=== PATIENT | female | born 1975 | race Caucasian/White ===

== ENCOUNTER 2019-06-22 06:13 | Inpatient (IN) | payer OTHER ==
[~2019-06-22] VITALS: Ht 154.9 cm; Wt 97.5 kg
[2019-06-22] MEDS ORDERED: SUCCINYLCHOLINE CHLORIDE 200 MG/10 ML VIAL IVP ONE (07:55)
[2019-06-22] MEDS ORDERED: DEXAMETHASONE 4 MG/ML VIAL ONE (07:55)
[2019-06-22] MEDS ORDERED: DESFLURANE 240 ML BTL INH ONE (07:55)
[2019-06-22] MEDS ORDERED: KETOROLAC 30 MG/ML VIAL ONE (07:55)
[2019-06-22] MEDS ORDERED: METOCLOPRAMIDE 10 MG/2 ML INJ VIAL ONE (07:55)
[2019-06-22] MEDS ORDERED: ONDANSETRON 4 MG/2 ML VIAL ONE (07:55)
[2019-06-22] MEDS ORDERED: ROCURONIUM 50 MG/5 ML VIAL IV ONE (07:55)
[2019-06-22] MEDS ORDERED: PROPOFOL 200 MG/20 ML VIAL IV ONE (07:55)
[2019-06-22] MEDS ORDERED: BUPIVACAINE-MPF/EPI 0.5% 30 ML VIAL INJ ONE (07:58)
[2019-06-22] MEDS ORDERED: fentaNYL 0.05 MG/ML VIAL ONE (08:01)
[2019-06-22] MEDS ORDERED: HYDROmorphone PFS 2 MG/ML SYR ONE (08:01)
[2019-06-22] MEDS ORDERED: MIDAZOLAM 2 MG/2 ML VIAL ONE (08:01)
[2019-06-22] MEDS ORDERED: HYDROmorphone 1 MG/ML AMP IVP PRN ×2 (08:30→10:35)
[2019-06-22] MEDS ORDERED: ONDANSETRON 4 MG/2 ML VIAL IVP PRN (08:30)
[2019-06-22] MEDS ORDERED: ONDANSETRON 4 MG/2 ML VIAL IV PRN (10:35)
[2019-06-22] MEDS ORDERED: ACETAMINOPHEN 325 MG TAB PO PRN (10:35)
[2019-06-22] MEDS ORDERED: LEVOFLOXACIN 500 MG/D5W PREMIX 100 ML IV SCH (11:00)
[2019-06-22 11:30] VITALS: BP 130/79
--- NOTE | 2019-06-22 11:30 | NUR ---
RECEIVED REPORT FROM [facility] FOR CONTINUITY OF CARE. PT IN STABLE CONDITION. IV INTACT AND PATENT. RESPIRATIONS EVEN AND UNLABORED. SAFETY MEASURES IN PLACE. BED IN LOW POSITION. CALL LIGHT AT BEDSIDE. BED ALARM ON. WILL CONTINUE TO MONITOR.
[2019-06-22] MEDS: MORPHINE SULFATE 4 MG/ML SYR IV PRN (12:20)
[2019-06-22] MEDS: DEXT 5% /NACL 0.9% 1,000 ML IV SCH ×2 (12:31→20:34)
--- NOTE | 2019-06-22 13:00 | NUR ---
LYING IN BED. FAMILY AT BEDSIDE. RESPIRATIONS EVEN AND UNLABORED. BED IN LOW POSITION. CALL LIGHT AT BEDSIDE. WILL CONTINUE TO MONITOR.
--- NOTE | 2019-06-22 14:23 | NUR ---
HALINA ALEXANDER FULL LIQUID DIET.
--- NOTE | 2019-06-22 16:30 | NUR ---
PT LYING IN BED. SLEEPING AT THIS TIME. BED IN LOW POSITION. CALL LIGHT AT BEDSIDE. WILL CONTINUE TO MONITOR.
[2019-06-22] MEDS: HYDROmorphone PFS 2 MG/ML SYR IVP PRN (17:51)
--- NOTE | 2019-06-22 18:52 | NUR ---
THANIA DRAIN 130ML OUTPUT
--- NOTE | 2019-06-22 19:15 | NUR ---
GAVE REPORT TO CURING BIN OPERATOR NURSE FOR CONTINUITY OF CARE. PT IN STABLE CONDITION.
--- NOTE | 2019-06-22 19:16 | NUR ---
RECD. RESTING IN BED, AWAKE, A/OX4. RESPIRATION EVEN AND UNLABORED. IV OF D5NS AT 100 ML/HR INFUSING, LEFT AC G20. INCISION IN THE ABDOMEN COVERED WITH DRESSING DRY AND INTACT. WITH 1 THANIA DRAINING SEROSANGUINEOUS FLUID MODERATE AMOUNT. ON BILATERAL LEG SEQUENTIALS. VOIDING WELL AND TOLERATING CLEAR LIQUID DIET. DENIES PAIN 0/10 AT THIS TIME. AT THE BEDSIDE.
[2019-06-22 20:00] VITALS: BP 125/62
--- NOTE | 2019-06-22 21:30 | NUR ---
SLEEPING IN BED, NO DISTRESS NOTED.
[2019-06-22] MEDS: HYDROcodone/APAP 5/325 MG 1 TAB TAB PO PRN (22:21)
--- NOTE | 2019-06-22 22:51 | NUR ---
Patient's Plan of Care was discussed and reviewed with LITERACY SPECIALIST: JANA ZAMORA
--- NOTE | 2019-06-22 23:00 | NUR ---
ASSISTED OUT OF BED TO GO TO [facility]. SAT ON THE CHAIR AFTER VOIDING.
--- NOTE | 2019-06-22 23:45 | NUR ---
EMPTY 100 ML OF DARK BROWNISH YELLOWISH FLUID FROM THANIA.
[2019-06-23] VITALS: BP 121/71
[2019-06-23] MEDS: HYDROmorphone PFS 2 MG/ML SYR IVP PRN ×4 (00:09→21:56)
--- NOTE | 2019-06-23 01:00 | NUR ---
SLEEPING COMFORTABLY IN BED.
[2019-06-23] MEDS: DEXT 5% /NACL 0.9% 1,000 ML IV SCH ×3 (01:48→17:02)
[2019-06-23 04:00] VITALS: BP 117/61
--- NOTE | 2019-06-23 04:00 | NUR ---
ASSISTED OUT OF BED TO GO TO [facility]. BACK TO BED AFTER VOIDING. VERBALIZED DESIRE TO WALK IN THE HALLWAY TODAY.
--- NOTE | 2019-06-23 05:00 | NUR ---
EMPTY 80 ML OF DARK BROWNISH YELLOWISH THANIA OUTPUT. DEMONSTRATED TO PATENT ON HOW EMPTY CONTENTS OF THANIA.
[2019-06-23 06:11] VITALS: BP 108/61
[2019-06-23 07:04] LABS: BASOPHILS % (AUTO) 0.2 % (0.0-2.0); HEMATOCRIT 36.5 % (36-48); HEMOGLOBIN 12.2 g/dL (12.0-16.0); LYMPHOCYTES # (AUTO) 1.4 K/uL (2.5-16.5); LYMPHOCYTES % (AUTO) 14.2 % (20.5-51.1); MEAN CORPUSCULAR HEMOGLOBIN 31 pg (27-31); MEAN CORPUSCULAR HGB CONC 34 g/dL (33-37); MEAN CORPUSCULAR VOLUME 93.2 fL (80-94); MONOCYTES # (AUTO) 0.7 K/uL (0.8-1.0); MONOCYTES % (AUTO) 6.6 % (1.7-9.3); NEUTROPHILS # (AUTO) 7.8 K/uL (1.8-7.7); PLATELET COUNT (AUTO) 205 K/uL (140-450); RED BLOOD CELL COUNT(AUTO) 3.91 MIL/uL (4.20-5.40); RED CELL DISTRIBUTION WIDTH 13.4 % (11.6-13.7); WHITE BLOOD COUNT (AUTO) 9.9 K/uL (4.8-10.8)
--- NOTE | 2019-06-23 07:20 | NUR ---
RECEIVED BEDSIDE REPORT FROM ELECTRON BEAM PHOTO MASK TECHNICIAN NURSE, PT IS AWAKE AND ALERT, NO S/S OF DISTRESS, NO C/O PAIN OR SOB. PT IS ON ROOM AIR. THANIA DRAIN NOTED TO BE DRAINING DARK BROWN LIQUID. IV SITE ON THE L AC 20 G IS INFUSING D5NS 100 ML/HR. SKIN INTACT ASIDE FROM THE ABD INCISION S/P CHOLECYSTOSTOMY. PT IS ON A CLEAR LIQUID DIET. COMMODE AT BEDSIDE. PT IS ABLE TO AMBULATE AND MAKE NEEDS KNOWN, CALL LIGHT IS WITHIN REACH.
--- NOTE | 2019-06-23 07:30 | NUR ---
CONDITION REMAIN STABLE. ENDORSED TO AM SHIFT NURSE FOR CONTINUITY OF CARE.
[2019-06-23 08:00] VITALS: BP 138/86
[2019-06-23 08:02] LABS: ANION GAP 14.1 (8-16); CARBON DIOXIDE 27.2 mmol/L (21-32); CREATININE 0.7 mg/dL (0.6-1.3); POTASSIUM 4.3 mmol/L (3.5-5.1)
[2019-06-23 08:03] LABS: ALBUMIN 3.2 g/dL (3.4-5.0)
[2019-06-23] MEDS: ENOXAPARIN 40 MG/0.4 ML SYR SUBQ SCH (09:24)
--- NOTE | 2019-06-23 09:29 | NUR ---
SCHEDULED AM LOVENOX ADMINISTERED, PT TOLERATED WELL.
--- NOTE | 2019-06-23 10:30 | NUR ---
EMPTIED OUT 100 ML FROM THANIA DRAIN SO FAR THIS MORNING
--- NOTE | 2019-06-23 10:42 | NUR ---
PT SEEN BY DR ALEXANDER
--- NOTE | 2019-06-23 11:30 | NUR ---
PT DOWNGRADED TO MED-SURG. PT PLACED NPO FOR POSSIBLE ERCP/STENT PLACEMENT.
[2019-06-23] MEDS: MORPHINE SULFATE 2 MG/ML SYR IVP PRN (11:59)
--- NOTE | 2019-06-23 13:34 | NUR ---
EMPTIED OUT 50 ML FROM THANIA DRAIN
--- NOTE | 2019-06-23 15:58 | NUR ---
PT SEEN BY DR GUILLEN Addendum: 06/23/19 at 1852 by Kimberly Lomeli RN DR GUILLEN PLANNING TO DO ERCP WITH STENT PLACEMENT TOMORROW. ASKS TO CONTINUE TO KEEP PT NPO.
[2019-06-23 16:00] VITALS: BP 133/80
--- NOTE | 2019-06-23 16:22 | NUR ---
PT'S CONSENT OBTAINED FOR ERCP WITH STENT PLACEMENT. YARD FOREMAN MALICK, ID# [id number]
--- NOTE | 2019-06-23 17:15 | NUR ---
EMPTIED OUT 70 ML FROM THE THANIA DRAIN
--- NOTE | 2019-06-23 19:30 | NUR ---
PT ENDORSED TO ASSEMBLY LEAD PERSON NURSE IN STABLE CONDITION.
--- NOTE | 2019-06-23 19:30 | NUR ---
Patient's Plan of Care was discussed and reviewed with RESEARCH CHEF: SUGEY
--- NOTE | 2019-06-23 19:31 | NUR ---
RECD. RESTING IN BED, AWAKE, A/OX4. RESPIRATION EVEN AND UNLABORED. IV OF D5 NS AT 100 ML/HR INFUSING LEFT AC G20. WITH MICHAEL CATH AT THE RIGHT UPPER CHEST, PER PT WAS USED FOR CHEMOTHERAPY ONE YEAR AGO, SITE CLEAN AND DRY. INCISION IN THE ABDOMEN COVERED WITH DRESSING DRY AND INTACT WITH ONE THANIA DRAINING DARK BROWN YELLOWISH FLUID MODERATE AMOUNT. NPO FOR PLANNED ERCP TOMORROW. VERBALIZED FEELING OF WARMTH IN THE BODY, TEMP CHECKED BY TEMPORAL AND AXILLARY, NO FEVER NOTED. PLAN OF CARE FOR THE SHIFT DISCUSSED. VERBALIZED UNDERSTANDING. DENIES PAIN 0/10 AT THIS TIME.
[2019-06-23 21:56] VITALS: BP 130/75
[2019-06-24] MEDS: DEXT 5% /NACL 0.9% 1,000 ML IV SCH ×3 (02:46→23:45)
[2019-06-24] MEDS: MORPHINE SULFATE 4 MG/ML SYR IV PRN (05:51)
--- NOTE | 2019-06-24 07:38 | NUR ---
RECEIVED BEDSIDE REPORT FROM PM RN PT APPEARS STABLE AND IN NO APPARENT DISTRESS. ALL SAFETY MEASURES ARE IN PLACE WILL CONTINUE TO MONITOR
--- NOTE | 2019-06-24 08:19 | NUR ---
PATIENT HAS BEEN SCREENED AND CATEGORIZED HIGH NUTRITION RISK. PATIENT WILL BE SEEN WITHIN 1-2 DAYS OF ADMISSION. 06/24/[address]
--- NOTE | 2019-06-24 08:36 | NUR ---
HELD LOVENOX PT IS GOING FOR ERCP TODAY. DR. FERRARO AWARE STATED ITS OK TO HOLD
[2019-06-24 08:55] VITALS: BP 129/75
[2019-06-24] MEDS: ENOXAPARIN 40 MG/0.4 ML SYR SUBQ SCH (09:00)
[2019-06-24] MEDS: HYDROmorphone PFS 2 MG/ML SYR IVP PRN ×3 (09:07→23:54)
--- NOTE | 2019-06-24 11:39 | NUR ---
DRAINED 105ML OF DARK BROWN FLUID FROM PT THANIA DRAIN. PT STATED SHE HAS NO PAIN AT THE MOMENT. ALL SAFETY MEASURES ARE IN PLACE WILL CONTINUE TO MONITOR.
--- NOTE | 2019-06-24 11:46 | NUR ---
PT TAKEN OFF THE UNIT TO OR FOR PROCEDURE
[2019-06-24] MEDS ORDERED: PROPOFOL 200 MG/20 ML VIAL IV ONE (12:24)
[2019-06-24] MEDS ORDERED: MIDAZOLAM 2 MG/2 ML VIAL ONE (12:26)
--- NOTE | 2019-06-24 13:40 | NUR ---
PT ARRIVED BACK ON THE UNIT PT AWAKE IN BED PT APPEARS STABLE AND IN NO APPARENT DISTRESS. ALL SAFETY MEASURES ARE IN PLACE POST OP VITALS STARTED. WILL CONTINUE TO MONITOR
--- NOTE | 2019-06-24 14:31 | NUR ---
OXYGEN SATURATION 85% ON ROOM AIR REVIEWED WITH OMER/RN AWARE SINCE AM COLLAR SETTER TO PLACE ON NASAL CANNULA AT 2 LPM RN AWARE
--- NOTE | 2019-06-24 15:25 | NUR ---
06/24/19 RD INITIAL ASSESSMENT COMPLETED PLEASE REFER TO NUTRITION ASSESSMENT UNDER CARE ACTIVITY FOR ESTIMATED NUTRITIONAL NEEDS. 1. CONTINUE NPO DIET TOLERATED 2. IF/WHEN MEDICALLY STABLE, CONSIDER ADVANCE DIET TOLERATED TO REGULAR DIET 3. NUTRITION EDUCATION ON A LOW-FAT DIET WAS LEFT AT BEDSIDE TABLE. 4. RD TO FOLLOW-UP 2-3 DAYS, HIGH RISK MADELYN POLO, RD
[2019-06-24 16:49] VITALS: BP 136/76
--- NOTE | 2019-06-24 17:41 | NUR ---
FREQUENT ROUNDING ON PT PT APPEARS STABLE AND IN NO APPARENT DISTRESS. ALL SAFETY MEASURES ARE IN PLACE,.
--- NOTE | 2019-06-24 19:28 | NUR ---
ENDORSED PT TO PM RN PT APPEARS STABLE AND IN NO APPARENT DISTRESS. ALL SAFETY MEASURES ARE IN PLACE.
[2019-06-24 20:00] VITALS: BP 137/89
--- NOTE | 2019-06-24 20:27 | NUR ---
PATIENT DECLINED I.S. FOLLOW UP DUE TO PAIN. REQUESTING TO WAIT, SAID PAIN LEVEL WAS HIGH. ADVISED THAT I WOULD CALL CRISTEL NAVAS.
[2019-06-24] MEDS: MORPHINE SULFATE 2 MG/ML SYR IVP PRN (21:18)
--- NOTE | 2019-06-24 23:29 | NUR ---
RECEIVED BEDSIDE REPORT FROM CHARGE NURSE, PT RESTING IN BED, AWAKE, A/OX4. RESPIRATION EVEN AND UNLABORED. IV OF NS AT 100 ML/HR LEFT AC G 20 WITH MICHAEL CATH AT THE RIGHT UPPER CHEST, PER PT WAS USED FOR CHEMOTHERAPY ONE YEAR AGO, SITE CLEAN AND DRY. SURGICAL SITE INCISION IN THE ABDOMEN COVERED WITH DRESSING DRY AND INTACT WITH ONE THANIA DRAINING DARK BROWN YELLOWISH FLUID MODERATE AMOUNT. VERBALIZED UNDERSTANDING.
--- NOTE | 2019-06-24 23:54 | NUR ---
PT C/O OF SURGICAL SITE PAIN S/P TARAS MCKEON 06/24 GRASPING SITE AND IRRITABLE, GIVEN EARLIER MICHELLE MEDS. SHE SAID BUT NOT WORKING. WILL ADMINISTER DILAUDID Addendum: 06/25/19 at 0252 by Winsome Marinelli RN AT [id number] MORPHINE GIVEN -2MG FOR MILD PAIN 1-3 PAIN MEDS
--- NOTE | 2019-06-25 | NUR ---
PT'S BP 141/ 47 HR 74; WNL, WILL CONTINUE TO MONITOR Addendum: 06/25/19 at 0425 by Winsome Marinelli RN DELETE NOTE WRONG PT
--- NOTE | 2019-06-25 00:10 | NUR ---
PT STILL AWAKE, LOOKING AT HER PHONE, INFORMED HER TO GET SOME SLEEP, PT VERBALIZED UNDERSTANDING. WILL CONTINUE TO MONITOR Addendum: 06/25/19 at 0424 by Winsome Marinelli RN DELETE NOTE WRONG PATIENT
--- NOTE | 2019-06-25 04:00 | NUR ---
THANIA DRAIN 70 ML, DARK BROWN COLOR
--- NOTE | 2019-06-25 05:30 | NUR ---
PT BRUSHED HER TEETH INDEPENDENTLY, PT C/O OF VAGINAL ITCHINESS/ DRYNESS WILL ENDORSE TO NEXT SHIFT
[2019-06-25] MEDS: DEXT 5% /NACL 0.9% 1,000 ML IV SCH ×2 (06:25→18:16)
--- NOTE | 2019-06-25 06:54 | NUR ---
PT STILL ASLEEP BUT AROUSABLE BY VERBAL STIMULI, AMBULATORY ONLY 2 STEPS FROM BEDSIDE W/ MINIMAL ASSIST. PT STABLE AT THIS TIME. WILL ENDORSE TO NEXT SHIFT.
[2019-06-25 07:03] LABS: ALBUMIN 2.8 g/dL (3.4-5.0); ANION GAP 12.2 (8-16); CARBON DIOXIDE 28.8 mmol/L (21-32); CREATININE 0.5 mg/dL (0.6-1.3); TOTAL BILIRUBIN 1.5 mg/dL (0.0-1.0)
[2019-06-25 07:32] LABS: BASOPHILS % (AUTO) 0.3 % (0.0-2.0); EOSINOPHILS # (AUTO) 0.1 K/uL (0-0.4); EOSINOPHILS % (AUTO) 1.6 % (0.0-4.0); HEMATOCRIT 33.7 % (36-48); HEMOGLOBIN 11.3 g/dL (12.0-16.0); LYMPHOCYTES # (AUTO) 2.1 K/uL (2.5-16.5); LYMPHOCYTES % (AUTO) 27.5 % (20.5-51.1); MEAN CORPUSCULAR HEMOGLOBIN 31 pg (27-31); MEAN CORPUSCULAR HGB CONC 34 g/dL (33-37); MEAN CORPUSCULAR VOLUME 93.4 fL (80-94); MONOCYTES # (AUTO) 0.6 K/uL (0.8-1.0); MONOCYTES % (AUTO) 7.3 % (1.7-9.3); NEUTROPHILS # (AUTO) 4.9 K/uL (1.8-7.7); NEUTROPHILS % (AUTO) 63.3 % (42.2-75.2); PLATELET COUNT (AUTO) 198 K/uL (140-450); RED BLOOD CELL COUNT(AUTO) 3.61 MIL/uL (4.20-5.40); RED CELL DISTRIBUTION WIDTH 13.8 % (11.6-13.7); WHITE BLOOD COUNT (AUTO) 7.8 K/uL (4.8-10.8)
--- NOTE | 2019-06-25 07:51 | NUR ---
RECEIVED HAND OFF REPORT FROM PM RN PT APPEARS STABLE AND IN NO APPARENT DISTRESS. ALL SAFETY MEASURES ARE IN PLACE WILL CONTINUE TO MONITOR
--- NOTE | 2019-06-25 08:04 | NUR ---
PT COMPLAIN OF PAIN UNABLE TO TAKE DEEP BREATH
[2019-06-25] MEDS: HYDROmorphone PFS 2 MG/ML SYR IVP PRN ×3 (08:15→21:08)
[2019-06-25] MEDS: ENOXAPARIN 40 MG/0.4 ML SYR SUBQ SCH (08:34)
--- NOTE | 2019-06-25 08:35 | NUR ---
HELD LOVENOX. PT HAD ERCP YESTERDAY. PT ALSO HAS THANIA DRAIN. PT HAS SURGICAL WOUNDS.
[2019-06-25 08:46] VITALS: BP 143/65
--- NOTE | 2019-06-25 10:36 | NUR ---
FREQUENT ROUNDING ON PT PT APPEARS STABLE AND IN NO APPARENT DISTRESS. ALL SAFETY MEASURES ARE PLACE WILL CONTINUE TO MONITOR
--- NOTE | 2019-06-25 12:45 | NUR ---
FREQUENT ROUNDING ON PT PT APPEARS STABLE AND IN NO APPARENT DISTRESS. ALL SAFETY MEASURES ARE IN PLACE WILL CONTINUE TO MONITOR
--- NOTE | 2019-06-25 14:36 | NUR ---
FREQUENT ROUNDING ON PT PT APPEARS STABLE AND IN NO APPARENT DISTRESS. ALL SAFETY MEASURES ARE IN PLACE WILL CONTINUE TO MONITOR
--- NOTE | 2019-06-25 16:00 | NUR ---
ENDORSED PT TO KADEN RN FOR CONTINUITY OF CARE. PT APPEARS STABLE AND IN NO APPARENT DISTRESS ALL SAFETY MEASURES ARE IN PLACE WILL CONTINUE TO MONITOR
--- NOTE | 2019-06-25 18:00 | NUR ---
RECIEVED PT WITH IVF RUN DRY. I CAME BACK AND REPRIMED AND HANG A NEW ONE. THE PT HAS NO C/O, AND IS ABLE TO AMBULATE EASILY.
--- NOTE | 2019-06-25 19:50 | NUR ---
Received endorsement from AM shift RN; patient A/Ox4, able to make needs known, Indonesian and Tamazight speaking, ambulatory. Patient ambulating in the hallway with relative; introduced self, updated board. No SOB or distress noted, on room air. IV site noted on left antecubital, running IVF, asymptomatic. THANIA drain noted, no discharge noted. Bed in the lowest position, call light within reach. Initial assessment done. Will continue to monitor.
--- NOTE | 2019-06-25 21:58 | NUR ---
Due meds given, tolerated well.
--- NOTE | 2019-06-25 23:59 | NUR ---
Vitals taken, no distress noted.
[2019-06-26] VITALS: BP 147/82
[2019-06-26] MEDS: HYDROmorphone PFS 2 MG/ML SYR IVP PRN ×4 (01:48→17:01)
--- NOTE | 2019-06-26 02:40 | NUR ---
Assisted patient to the restroom, no distress noted.
[2019-06-26] MEDS: DEXT 5% /NACL 0.9% 1,000 ML IV SCH ×2 (04:03→14:50)
--- NOTE | 2019-06-26 04:55 | NUR ---
Rounds done; assisted patient to the restroom, no distress or SOB noted.
--- NOTE | 2019-06-26 06:15 | NUR ---
Vitals stable, due meds given. Will endorse to AM shift RN for continuity of care.
--- NOTE | 2019-06-26 07:30 | NUR ---
RECEIVED BEDSIDE REPORT FROM RESPIRATORY PHYSICIAN NURSE. PT IS AWAKE AND ALERT, NO S/S OF ACUTE DISTRESS OR SOB. NO C/O PAIN. IV SITE L AC 20 G INFUSING D5NS 100 ML/HR. PT IS ON ROOM AIR, SKIN INTACT ASIDE FROM ABD SURGERY INCISIONS COVERED BY A DRY DRESSING. CALL LIGHT IS WITHIN REACH, WILL CONTINUE TO MONITOR.
[2019-06-26 08:00] VITALS: BP 134/79
[2019-06-26] MEDS: ENOXAPARIN 40 MG/0.4 ML SYR SUBQ SCH (09:00)
--- NOTE | 2019-06-26 09:29 | NUR ---
PT AMBULATING IN THE HALLWAY, TOLERATING WELL, STEADY GAIT.
--- NOTE | 2019-06-26 10:15 | NUR ---
ORDERED LOVENOX ADMINISTERED, PT TOLERATED WELL.
--- NOTE | 2019-06-26 11:52 | NUR ---
ADMINISTERED 1.5 MG DILAUDID PRN FOR ABD PAIN 04/24. WILL REASSESS WITHIN AN HOUR.
[2019-06-26] MEDS ORDERED: ACET-9525 PO (12:39)
--- NOTE | 2019-06-26 14:05 | NUR ---
06/26/19 RD FOLLOW UP COMPLETED PLEASE REFER TO NUTRITION PROGRESS NOTE UNDER CARE ACTIVITY FOR ESTIMATED NUTRITION NEEDS. RD RECOMMENDATIONS: 1.WHEN MEDICALLY APPROPRIATE, CONSIDER ADVANCING PTS DIET TO LOW FAT DIET. WHEN 2. NUTRITION EDUCATION ON A LOW-FAT DIET WAS PROVIDED TO PT. 3. RD TO FOLLOW-UP 7 DAYS, LOW RISK. DAVID HOWARD, RD
[2019-06-26 16:00] VITALS: BP 120/83
--- NOTE | 2019-06-26 19:25 | NUR ---
RECEIVED PT IN STABLE CONDITION FROM AM NURSE. MED SURG. JUST AMBULATED TO THE HALLWAY. WITH NO DISCOMFORT NOTED. IVF INFUSING ON LT AC G#20. CLEAR AND PATENT. ABDOMEN WITH INCISIONS,SMALL ON BELLY AND RIGHT UPPER QUADRANT WITH FATEMEH INTACT. J DEL CASTILLO ON THE RT SIDE ABDOMEN. NO VERY SCANTY LIGHT BROWN OUTPUT. PLAN OF CARE DISCUSSED AND VERBALIZED UNDERSTANDING. BED ON LOW POSITION. CALL LIGHT WITHIN EASY REACH. FAMILY AT BEDSIDE. WILL CONTINUE TO MONITOR.
--- NOTE | 2019-06-26 19:25 | NUR ---
ENDORSED PT TO NUCLEAR PROCESS ENGINEER NURSE IN STABLE CONDITION.
--- NOTE | 2019-06-26 19:55 | NUR ---
DR. REINA MACHUCA CAME AND SEEN PT. EXPLAINED TO PT/FAMILY PLAN OF CARE.
--- NOTE | 2019-06-26 21:00 | NUR ---
DR. HARRIS CAME AND ORDERED PT TO DC HOME TONIGHT. WILL DO DC INSTRUCTIONS.
[2019-06-26 21:55] VITALS: BP 135/89
[2019-06-26] MEDS: HYDROcodone/APAP 5/325 MG 1 TAB TAB PO PRN (22:00)
--- NOTE | 2019-06-26 22:05 | NUR ---
PAGED DR. HARRIS. CALLED BACK AND SAID PT HAS TO GO HOME WITH Patrick GOETZ AND TO SEE HIM ON JUL 01 IN THE OFFICE.
[2019-06-26 22:48] VITALS: BP 135/89
--- NOTE | 2019-06-26 23:25 | NUR ---
PT NO MORE C/O PAIN AFTER GIVEN PAIN PILL @2200. ID BAND AND IV ACCESS ON THE LT AC REMOVED. DISCHARGE INSTRUCTION GIVEN TO PT/FAMILY. PROPER WOUND CARE DEMONSTRATED TO PT . Patrick DEL CASTILLO TO GO HOME WITH PT. INSTRUCTED ABOUT THE APPOINTMENT WITH DR. HARRIS ON JUL 01. WILL HAVE TO CALL OFFICE ,FRIDAY FOR TIME OF APPOINTMENT . VERBALIZED UNDERSTANDING. ALL PERSONAL BELONGINGS WITH PT. DC HOME WITH WHEELCHAIR ACCOMPANIED BY DIE OUT WORKER TO BROTHER HOWARD SEGUNDO CAR . PT IN STABLE CONDITION.
[2019-06-27 09:14] VITALS: BP 120/83
== END 2019-06-26 23:25 | disposition home or self-care (01) | DRG 261 ==
LOC: MOR 06:13 → MMU 06:14 → MOR 10:47 → MMU 11:15
PROVIDERS: ADMIT Surgery; ATTEND Surgery
PROC: 0FC40ZZ Extirpation of Matter from Gallbladder, Open Approach (ICD-10-PCS; 2019-06-22)
PROC: 0D9W00Z Drainage of Peritoneum with Drainage Device, Open Approach (ICD-10-PCS; 2019-06-22)
PROC: 0FQ Hepatobiliary System and Pancreas, Repair (ICD-10-PCS; 2019-06-22)
PROC: 0FJ44ZZ Inspection of Gallbladder, Percutaneous Endoscopic Approach (ICD-10-PCS; principal; 2019-06-22 07:30)
PROC: 0F798DZ Dilation of Common Bile Duct with Intraluminal Device, Via Natural or Artificial Opening Endoscopic (ICD-10-PCS; 2019-06-24)
PROC: BF131ZZ Fluoroscopy of Gallbladder and Bile Ducts using Low Osmolar Contrast (ICD-10-PCS; 2019-06-24)
DX: K80.10 Calculus of gallbladder with chronic cholecystitis without obstruction (principal); K65.3 Choleperitonitis; E66.01 Morbid (severe) obesity due to excess calories; K66.0 Peritoneal adhesions (postprocedural) (postinfection); Z68.41 Body mass index [BMI] 40.0-44.9, adult; K91.89 Other postprocedural complications and disorders of digestive system; Y83.8 Other surgical procedures as the cause of abnormal reaction of the patient, or of later complication, without mention of misadventure at the time of the procedure
CPT/HCPCS: 36415; 71045; 74330; 80053; 82374; 85025; 87081; 88300; 88304; 93005; C1727; C1769; J0330; J0690; J1100; J1170; J1650; J1885; J1956; J2250; J2270; J2405; J2704; J2765; J3010; J3490; J7030; J7042; J7060; J7120

== ENCOUNTER 2019-07-03 20:38 | Emergency (ER) | payer OTHER ==
[~2019-07-03] VITALS: Ht 154.9 cm; Wt 93.9 kg
[~2019-07-03 20:38] MED LIST: ACET-9525 PO
[2019-07-03 20:45] VITALS: BP 102/76
[2019-07-03] MEDS ORDERED: SULFAMETH/TRIMETH DS 800/160MG 1 TAB PO ONE (21:40)
[2019-07-03 21:50] VITALS: BP 132/81
== END 2019-07-03 21:50 | disposition home or self-care (01) ==
LOC: MED 20:38
DX: K91.89 Other postprocedural complications and disorders of digestive system (principal); Z79.899 Other long term (current) drug therapy; Z85.43 Personal history of malignant neoplasm of ovary; Z90.49 Acquired absence of other specified parts of digestive tract
CPT/HCPCS: 99283

== ENCOUNTER 2019-08-04 12:19 | Emergency (ER) | payer OTHER ==
[~2019-08-04] VITALS: Ht 154.9 cm; Wt 95.3 kg
[2019-08-04 12:23] VITALS: BP 121/65
--- NOTE | 2019-08-04 12:56 | NUR ---
Patient ambulated to bed 11. RN evaluating patient at bedside.
--- NOTE | 2019-08-04 13:00 | NUR ---
PT C/O UPPER ABDOMINAL PAIN RADIATING TO HER MEDIAL BACK X 2 DAYS. TOOK HYDROCODONE AT 0730 AM AND OXYCODONE AT 0930 AM THIS MORNING W/O RELIEF. DENIES DIARRHEA, BURNING URINATION, OR FEVER. PT HAS HX OF OVARIAN CANCER, PORTAL CATHETER ON RIGHT UPPER CHEST FOR CHEMOTHERAPY, GALL STONE REMOVAL ON 06/22/2019, TUBE IN GALL BLADDER FOR DRAINAGE; PATIENT STATES PAIN OF 8/10 AT THIS TIME; VSS; PATIENT POSITIONED FOR COMFORT; HOB ELEVATED; BEDRAILS UP X1; BED DOWN. ER MD MADE AWARE OF PT STATUS.
[2019-08-04] MEDS ORDERED: NACL 0.9% 1,000 ML IV SCH (14:44)
[2019-08-04] MEDS ORDERED: ONDANSETRON 4 MG/2 ML VIAL IVP ONE (14:45)
[2019-08-04 15:05] LABS: BASOPHILS % (AUTO) 0.2 % (0.0-2.0); EOSINOPHILS % (AUTO) 0.2 % (0.0-4.0); HEMATOCRIT 38.7 % (36-48); HEMOGLOBIN 12.8 g/dL (12.0-16.0); LYMPHOCYTES # (AUTO) 0.8 K/uL (2.5-16.5); LYMPHOCYTES % (AUTO) 8.9 % (20.5-51.1); MEAN CORPUSCULAR HEMOGLOBIN 30 pg (27-31); MEAN CORPUSCULAR HGB CONC 33 g/dL (33-37); MEAN CORPUSCULAR VOLUME 91.5 fL (80-94); MONOCYTES # (AUTO) 0.7 K/uL (0.8-1.0); MONOCYTES % (AUTO) 7.5 % (1.7-9.3); NEUTROPHILS # (AUTO) 7.6 K/uL (1.8-7.7); NEUTROPHILS % (AUTO) 83.2 % (42.2-75.2); PLATELET COUNT (AUTO) 223 K/uL (140-450); RED BLOOD CELL COUNT(AUTO) 4.23 MIL/uL (4.20-5.40); RED CELL DISTRIBUTION WIDTH 14.2 % (11.6-13.7); WHITE BLOOD COUNT (AUTO) 9.1 K/uL (4.8-10.8)
--- NOTE | 2019-08-04 15:09 | NUR ---
PT REFUSED ZOFRAN IVP, PT STATED THAT SHE DOES NOT FEEL NAUSEOUS. DR DÍAZ MADE AWARE. IVF STARTED, INFUSING WELL.
[2019-08-04 15:17] LABS: ANION GAP 16.2 (8-16); CARBON DIOXIDE 25.8 mmol/L (21-32); CREATININE 0.6 mg/dL (0.6-1.3)
[2019-08-04 15:24] LABS: ALBUMIN 3.9 g/dL (3.4-5.0); TOTAL BILIRUBIN 1.6 mg/dL (0.0-1.0)
--- NOTE | 2019-08-04 17:52 | NUR ---
DOCTOR DÍAZ AT BEDSIDE
[2019-08-04 19:34] VITALS: BP 141/85
--- NOTE | 2019-08-04 19:36 | NUR ---
DPatient discharged with v/s stable. Written and verbal after care instructions ABOUT ABDOMINAL PAIN given and explained. Patient alert, oriented and verbalized understanding of instructions. Ambulatory with steady gait. All questions addressed prior to discharge. ID band removed. Patient advised to follow up with PMD. Rx of ZOFRAN given. Patient educated on indication of medication including possible reaction and side effects. Opportunity to ask questions provided and answered.
[2019-08-04 22:31] LABS: APPEARANCE,URINE CLEAR (CLEAR); BILIRUBIN,URINE NEGATIVE (NEGATIVE); BLOOD, URINE NEGATIVE (NEGATIVE); COLOR,URINE YELLOW (YELLOW); LEUKOCYTE ESTERASE ,URINE NEGATIVE (NEGATIVE); NITRITE, URINE NEGATIVE (NEGATIVE); UGLUCOSE NEGATIVE (NEGATIVE)
== END 2019-08-04 19:36 | disposition home or self-care (01) ==
LOC: MED 12:19
DX: K29.70 Gastritis, unspecified, without bleeding (principal); R94.5 Abnormal results of liver function studies; Z85.43 Personal history of malignant neoplasm of ovary; Z98.890 Other specified postprocedural states; Z79.899 Other long term (current) drug therapy
CPT/HCPCS: 36415; 74176; 80053; 81003; 82150; 83690; 85025; 99284; J7030; J2405

== ENCOUNTER 2019-08-26 16:05 | Emergency (ER) | payer OTHER ==
[~2019-08-26] VITALS: Ht 132.1 cm; Wt 94.8 kg
[2019-08-26 16:32] VITALS: BP 151/82
[2019-08-26] MEDS ORDERED: ONDANSETRON 4 MG/2 ML VIAL IVP ONE (16:45)
[2019-08-26] MEDS ORDERED: NACL 0.9% 1,000 ML IV ONE (16:45)
--- NOTE | 2019-08-26 17:00 | NUR ---
PT REFUSED FLUID AND ZOFRAN. PT DENIES PAIN AND ANY N/V. PT WAS TAKEN TO CT. BY W/C
[2019-08-26 17:11] LABS: BASOPHILS % (AUTO) 0.5 % (0.0-2.0); EOSINOPHILS # (AUTO) 0.1 K/uL (0-0.4); EOSINOPHILS % (AUTO) 1.2 % (0.0-4.0); HEMATOCRIT 39.9 % (36-48); LYMPHOCYTES # (AUTO) 3.1 K/uL (2.5-16.5); LYMPHOCYTES % (AUTO) 46.3 % (20.5-51.1); MEAN CORPUSCULAR HEMOGLOBIN 31 pg (27-31); MEAN CORPUSCULAR HGB CONC 33 g/dL (33-37); MEAN CORPUSCULAR VOLUME 93.3 fL (80-94); MONOCYTES # (AUTO) 0.4 K/uL (0.8-1.0); MONOCYTES % (AUTO) 6.4 % (1.7-9.3); NEUTROPHILS % (AUTO) 45.6 % (42.2-75.2); PLATELET COUNT (AUTO) 213 K/uL (140-450); RED BLOOD CELL COUNT(AUTO) 4.27 MIL/uL (4.20-5.40); RED CELL DISTRIBUTION WIDTH 14.4 % (11.6-13.7); WHITE BLOOD COUNT (AUTO) 6.6 K/uL (4.8-10.8)
[2019-08-26 17:13] LABS: APPEARANCE,URINE CLEAR (CLEAR); BILIRUBIN,URINE NEGATIVE (NEGATIVE); BLOOD, URINE TRACE-I (NEGATIVE); COLOR,URINE YELLOW (YELLOW); LEUKOCYTE ESTERASE ,URINE TRACE (NEGATIVE); NITRITE, URINE NEGATIVE (NEGATIVE); PH,URINE 5.5 (5.0-9.0); UGLUCOSE NEGATIVE (NEGATIVE)
[2019-08-26] MEDS ORDERED: MORPHINE SULFATE 4 MG/ML SYR IM/IVP ONE (17:20)
[2019-08-26 17:25] LABS: ANION GAP 13.7 (8-16); CARBON DIOXIDE 29.1 mmol/L (21-32); CREATININE 0.8 mg/dL (0.6-1.3); POTASSIUM 3.8 mmol/L (3.5-5.1)
[2019-08-26 17:28] LABS: RBC,URINE 0-5 /HPF (0-5)
[2019-08-26 17:29] LABS: WBC,URINE 0-5 /HPF (0-5)
[2019-08-26 17:30] LABS: ALBUMIN 4.2 g/dL (3.4-5.0); TOTAL BILIRUBIN 0.7 mg/dL (0.0-1.0)
--- NOTE | 2019-08-26 17:35 | NUR ---
CO PAIN COMES BACK. MORPHINE GIVEN IM PER MD ORDER.
[2019-08-26 18:32] VITALS: BP 134/75
--- NOTE | 2019-08-26 18:32 | NUR ---
Patient discharged with v/s stable. Written and verbal after care instructions given and explained. Patient alert, oriented and verbalized understanding of instructions. Ambulatory with steady gait. All questions addressed prior to discharge. ID band removed. Patient advised to follow up with PMD. Rx of Miralax, Colton and Reglan given. Patient educated on indication of medication including possible reaction and side effects. Opportunity to ask questions provided and answered.
== END 2019-08-26 18:32 | disposition home or self-care (01) ==
LOC: MED 16:05
DX: R10.13 Epigastric pain (principal); R11.2 Nausea with vomiting, unspecified; Z85.43 Personal history of malignant neoplasm of ovary; Z79.899 Other long term (current) drug therapy
CPT/HCPCS: 36415; 74176; 80053; 81001; 81025; 83690; 85025; 96372; 99284; J2270; J2405

== ENCOUNTER 2020-02-08 05:53 | Day surgery (SDC) | payer OTHER, SELFPAY ==
[~2020-02-08] VITALS: Ht 154.9 cm; Wt 98.0 kg
[2020-02-08 07:03] LABS: BASOPHILS % (AUTO) 0.4 % (0.0-2.0); EOSINOPHILS # (AUTO) 0.2 K/uL (0-0.4); EOSINOPHILS % (AUTO) 4.2 % (0.0-4.0); HEMATOCRIT 40.1 % (36-48); HEMOGLOBIN 13.2 g/dL (12.0-16.0); LYMPHOCYTES # (AUTO) 3.1 K/uL (2.5-16.5); LYMPHOCYTES % (AUTO) 52.8 % (20.5-51.1); MEAN CORPUSCULAR HEMOGLOBIN 31 pg (27-31); MEAN CORPUSCULAR HGB CONC 33 g/dL (33-37); MEAN CORPUSCULAR VOLUME 92.8 fL (80-94); MONOCYTES # (AUTO) 0.4 K/uL (0.8-1.0); NEUTROPHILS # (AUTO) 2.2 K/uL (1.8-7.7); NEUTROPHILS % (AUTO) 36.6 % (42.2-75.2); PLATELET COUNT (AUTO) 199 K/uL (140-450); RED BLOOD CELL COUNT(AUTO) 4.33 MIL/uL (4.20-5.40); RED CELL DISTRIBUTION WIDTH 14.2 % (11.6-13.7); WHITE BLOOD COUNT (AUTO) 5.9 K/uL (4.8-10.8)
[2020-02-08 07:20] LABS: PROTHROMBIN TIME 9.3 secs (10.8-13.4)
[2020-02-08 07:21] LABS: ALBUMIN 3.8 g/dL (3.4-5.0); ANION GAP 13.7 (8-16); CARBON DIOXIDE 29.3 mmol/L (21-32); CREATININE 0.8 mg/dL (0.6-1.3); TOTAL BILIRUBIN 0.6 mg/dL (0.0-1.0)
[2020-02-08] MEDS ORDERED: MIDAZOLAM 2 MG/2 ML VIAL ONE (08:41)
[2020-02-08] MEDS ORDERED: PROPOFOL 200 MG/20 ML VIAL IV ONE (08:41)
[2020-02-08] MEDS ORDERED: DEXAMETHASONE 4 MG/ML VIAL ONE (08:41)
[2020-02-08] MEDS ORDERED: KETAMINE 500 MG/5 ML VIAL ONE (08:41)
[2020-02-08] MEDS ORDERED: HYDROmorphone 1 MG/ML AMP IVP PRN (11:00)
[2020-02-08 11:38] LABS: ALBUMIN 3.8 g/dL (3.4-5.0); BILIRUBIN,DIRECT 0.2 mg/dL (0.0-0.3); TOTAL BILIRUBIN 0.8 mg/dL (0.0-1.0)
== END 2020-02-08 12:25 | disposition home or self-care (01) ==
LOC: MDS 05:53 → MMU 06:20 → MDS 12:25
PROVIDERS: ATTEND Internal Medicine
DX: K80.20 Calculus of gallbladder without cholecystitis without obstruction (principal); E66.01 Morbid (severe) obesity due to excess calories; Z68.41 Body mass index [BMI] 40.0-44.9, adult; Z90.710 Acquired absence of both cervix and uterus; Z79.01 Long term (current) use of anticoagulants
CPT/HCPCS: 36415; 43264; 43276; 71045; 74018; 76000; 80053; 80076; 82150; 83690; 85025; 85610; 85730; C1769; C1773; J1100; J1170; J2250; J2704; J7120; Q0092; C9803-CS; U0003-CS

== ENCOUNTER 2020-02-17 19:06 | Inpatient (IN) | payer OTHER, SELFPAY ==
[~2020-02-17] VITALS: Ht 154.9 cm; Wt 100.2 kg
[2020-02-17 19:13] VITALS: BP 134/81
[2020-02-17] MEDS ORDERED: NACL 0.9% 1,000 ML IV ONE (19:35)
[2020-02-17] MEDS ORDERED: ONDANSETRON 4 MG/2 ML VIAL IVP ONE (19:35)
[2020-02-17] MEDS ORDERED: MORPHINE SULFATE 4 MG/ML SYR IVP ONE (19:35)
[2020-02-17 19:53] LABS: BASOPHILS # (AUTO) 0.1 K/uL (0.00-0.22); BASOPHILS % (AUTO) 0.9 % (0.0-2.0); EOSINOPHILS % (AUTO) 0.4 % (0.0-4.0); HEMATOCRIT 39.9 % (36-48); HEMOGLOBIN 13.1 g/dL (12.0-16.0); LYMPHOCYTES # (AUTO) 1.7 K/uL (2.5-16.5); LYMPHOCYTES % (AUTO) 14.5 % (20.5-51.1); MEAN CORPUSCULAR HEMOGLOBIN 31 pg (27-31); MEAN CORPUSCULAR HGB CONC 33 g/dL (33-37); MEAN CORPUSCULAR VOLUME 93.4 fL (80-94); MONOCYTES # (AUTO) 0.6 K/uL (0.8-1.0); MONOCYTES % (AUTO) 5.1 % (1.7-9.3); NEUTROPHILS % (AUTO) 79.1 % (42.2-75.2); PLATELET COUNT (AUTO) 212 K/uL (140-450); RED BLOOD CELL COUNT(AUTO) 4.27 MIL/uL (4.20-5.40); WHITE BLOOD COUNT (AUTO) 11.4 K/uL (4.8-10.8)
[2020-02-17 20:25] LABS: ALBUMIN 3.9 g/dL (3.4-5.0); ANION GAP 14.4 (8-16); CARBON DIOXIDE 30.9 mmol/L (21-32); CREATININE 0.9 mg/dL (0.6-1.3); POTASSIUM 4.3 mmol/L (3.5-5.1); TOTAL BILIRUBIN 1.1 mg/dL (0.0-1.0)
[2020-02-17] MEDS ORDERED: LACTATED RINGERS 1,000 ML IV SCH (21:20)
[2020-02-17] MEDS ORDERED: LORazepam 2 MG/ML VIAL IVP PRN (21:20)
[2020-02-17] MEDS ORDERED: ACETAMINOPHEN 325 MG TAB PO PRN (21:20)
[2020-02-17] MEDS ORDERED: MORPHINE SULFATE 2 MG/ML SYR IVP PRN (21:20)
[2020-02-17] MEDS ORDERED: ZOLPIDEM 5 MG TAB PO PRN (21:20)
[2020-02-17] MEDS ORDERED: METOCLOPRAMIDE 10 MG/2 ML INJ VIAL IVP PRN (21:20)
[2020-02-17] MEDS ORDERED: ONDANSETRON 4 MG/2 ML VIAL IVP PRN (21:20)
[2020-02-17] MEDS ORDERED: PIPERACILLIN/TAZOBACTAM 3.375 GM in DEXTROSE 5% 50 ML IV ONE (21:25)
[2020-02-17] MEDS ORDERED: PIPERACILLIN/TAZOBACTAM 3.375 GM VIAL IV ONE (21:26)
[2020-02-17] MEDS ORDERED: URSO300C14 PO (21:37)
[2020-02-17] MEDS ORDERED: PANT40EC PO (21:37)
[2020-02-17] MEDS: MORPHINE SULFATE 4 MG/ML SYR IVP PRN (23:02)
[2020-02-17 23:20] VITALS: BP 122/80
[2020-02-18] VITALS: BP 114/60
[2020-02-18 04:00] VITALS: BP 110/60
[2020-02-18 06:11] LABS: BASOPHILS % (AUTO) 0.5 % (0.0-2.0); HEMATOCRIT 38.9 % (36-48); HEMOGLOBIN 13.1 g/dL (12.0-16.0); LYMPHOCYTES # (AUTO) 0.6 K/uL (2.5-16.5); LYMPHOCYTES % (AUTO) 5.8 % (20.5-51.1); MEAN CORPUSCULAR HEMOGLOBIN 31 pg (27-31); MEAN CORPUSCULAR HGB CONC 34 g/dL (33-37); MEAN CORPUSCULAR VOLUME 92.5 fL (80-94); MONOCYTES # (AUTO) 0.4 K/uL (0.8-1.0); MONOCYTES % (AUTO) 4.2 % (1.7-9.3); NEUTROPHILS # (AUTO) 8.7 K/uL (1.8-7.7); NEUTROPHILS % (AUTO) 89.5 % (42.2-75.2); PLATELET COUNT (AUTO) 191 K/uL (140-450); RED BLOOD CELL COUNT(AUTO) 4.21 MIL/uL (4.20-5.40); RED CELL DISTRIBUTION WIDTH 13.8 % (11.6-13.7); WHITE BLOOD COUNT (AUTO) 9.8 K/uL (4.8-10.8)
[2020-02-18 07:14] LABS: ALBUMIN 3.3 g/dL (3.4-5.0); ANION GAP 15.4 (8-16); CARBON DIOXIDE 26.5 mmol/L (21-32); CREATININE 0.8 mg/dL (0.6-1.3); POTASSIUM 3.9 mmol/L (3.5-5.1)
[2020-02-18 08:00] VITALS: BP 105/56
[2020-02-18] MEDS: MORPHINE SULFATE 4 MG/ML SYR IVP PRN (08:31)
[2020-02-18] MEDS ORDERED: PANTOPRAZOLE 40 MG TABEC PO SCH (09:00)
[2020-02-18] MEDS ORDERED: ENOXAPARIN 40 MG/0.4 ML SYR SUBQ SCH (09:00)
[2020-02-18] MEDS ORDERED: DEXT 5% / NACL 0.9% 500 ML IV SCH (09:00)
[2020-02-18] MEDS ORDERED: PROPOFOL 200 MG/20 ML VIAL IV ONE (11:00)
[2020-02-18] MEDS ORDERED: fentaNYL 0.05 MG/ML VIAL ONE (11:00)
[2020-02-18] MEDS ORDERED: METOCLOPRAMIDE 10 MG/2 ML INJ VIAL ONE (11:00)
[2020-02-18] MEDS ORDERED: MIDAZOLAM 2 MG/2 ML VIAL ONE (11:00)
[2020-02-18] MEDS ORDERED: DEXT 5% /NACL 0.9% 1,000 ML IV SCH (11:24)
[2020-02-18] MEDS: LACTATED RINGERS 1,000 ML IV SCH ×3 (11:53→22:33)
[2020-02-18] MEDS ORDERED: MEPERIDINE 25 MG/ML SYR IVP PRN (11:55)
[2020-02-18] MEDS ORDERED: ONDANSETRON 4 MG/2 ML VIAL IVP PRN (11:55)
[2020-02-18] MEDS ORDERED: diphenhydrAMINE 50 MG/ML VIAL IVP PRN (11:55)
[2020-02-18] MEDS ORDERED: MAGNESIUM CITRATE 300 ML BTL PO SCH (14:30)
[2020-02-18 16:00] VITALS: BP 95/45
[2020-02-18] MEDS: SENNA 8.6 MG TAB PO SCH (17:07)
[2020-02-18] MEDS: METOCLOPRAMIDE 10 MG/2 ML INJ VIAL IVP SCH (17:07)
[2020-02-19] VITALS: BP 109/58
[2020-02-19] MEDS: HYDROmorphone 1 MG/ML AMP IVP PRN ×2 (02:46→08:21)
[2020-02-19 06:36] LABS: BASOPHILS % (AUTO) 0.3 % (0.0-2.0); EOSINOPHILS % (AUTO) 0.3 % (0.0-4.0); HEMATOCRIT 35.7 % (36-48); HEMOGLOBIN 11.9 g/dL (12.0-16.0); LYMPHOCYTES # (AUTO) 1.3 K/uL (2.5-16.5); LYMPHOCYTES % (AUTO) 17.5 % (20.5-51.1); MEAN CORPUSCULAR HEMOGLOBIN 31 pg (27-31); MEAN CORPUSCULAR HGB CONC 33 g/dL (33-37); MEAN CORPUSCULAR VOLUME 92.6 fL (80-94); MONOCYTES # (AUTO) 0.7 K/uL (0.8-1.0); MONOCYTES % (AUTO) 9.4 % (1.7-9.3); NEUTROPHILS # (AUTO) 5.4 K/uL (1.8-7.7); NEUTROPHILS % (AUTO) 72.5 % (42.2-75.2); PLATELET COUNT (AUTO) 142 K/uL (140-450); RED BLOOD CELL COUNT(AUTO) 3.86 MIL/uL (4.20-5.40); RED CELL DISTRIBUTION WIDTH 13.8 % (11.6-13.7); WHITE BLOOD COUNT (AUTO) 7.4 K/uL (4.8-10.8)
[2020-02-19 07:15] LABS: ALBUMIN 2.8 g/dL (3.4-5.0); CARBON DIOXIDE 27.7 mmol/L (21-32); CREATININE 0.7 mg/dL (0.6-1.3); POTASSIUM 3.7 mmol/L (3.5-5.1); TOTAL BILIRUBIN 3.1 mg/dL (0.0-1.0)
[2020-02-19 08:00] VITALS: BP 123/69
[2020-02-19] MEDS ORDERED: URSODIOL 300 MG CAP PO SCH (08:00)
[2020-02-19] MEDS: METOCLOPRAMIDE 10 MG/2 ML INJ VIAL IVP SCH ×2 (08:21→12:16)
[2020-02-19] MEDS: SENNA 8.6 MG TAB PO SCH ×2 (08:21→12:16)
== END 2020-02-19 12:45 | disposition home or self-care (01) ==
LOC: MED 19:06 → MTU 21:26
PROVIDERS: ADMIT Internal Medicine; ATTEND Internal Medicine
PROC: BF131ZZ Fluoroscopy of Gallbladder and Bile Ducts using Low Osmolar Contrast (ICD-10-PCS; 2020-02-18)
PROC: 0F798ZZ Dilation of Common Bile Duct, Via Natural or Artificial Opening Endoscopic (ICD-10-PCS; 2020-02-18)
PROC: 0FC98ZZ Extirpation of Matter from Common Bile Duct, Via Natural or Artificial Opening Endoscopic (ICD-10-PCS; principal; 2020-02-18 11:00)
DX: K80.30 Calculus of bile duct with cholangitis, unspecified, without obstruction (principal); E66.01 Morbid (severe) obesity due to excess calories; K80.20 Calculus of gallbladder without cholecystitis without obstruction; R79.89 Other specified abnormal findings of blood chemistry; K83.8 Other specified diseases of biliary tract; Z85.43 Personal history of malignant neoplasm of ovary; Z68.41 Body mass index [BMI] 40.0-44.9, adult
CPT/HCPCS: 36415; 76705; 80053; 83690; 85025; 87081; 96361; 96365; 96375; 99285; C1727; C1769; J1170; J1650; J2250; J2270; J2405; J2543; J2704; J2765; J3010; J7042; J7120; Q0092